=== PATIENT | male | born 2000 | race Caucasian/White ===

== ENCOUNTER 2020-02-29 08:29 | Emergency (ER) | payer OTHER ==
[~2020-02-29] VITALS: Ht 170.1 cm; Wt 63.5 kg
[~2020-02-29 08:29] MED LIST: AMOXICILLIN500 M3 PO; NAPROSYN500 MG PO
== END 2020-02-29 10:15 | disposition home or self-care (01) ==
LOC: ED 08:29
DX: S61.210A Laceration without foreign body of right index finger without damage to nail, initial encounter (principal); W45.8XXA Other foreign body or object entering through skin, initial encounter; Y93.89 Activity, other specified; Y92.89 Other specified places as the place of occurrence of the external cause; Y99.8 Other external cause status

== ENCOUNTER 2020-08-24 14:12 | Emergency (ER) | payer OTHER ==
[~2020-08-24] VITALS: Wt 59.0 kg
== END 2020-08-24 17:22 | disposition home or self-care (01) ==
LOC: ED 14:12
DX: T14.8XXA Other injury of unspecified body region, initial encounter (principal); Z79.899 Other long term (current) drug therapy; V89.2XXA Person injured in unspecified motor-vehicle accident, traffic, initial encounter; Y93.89 Activity, other specified; Y92.89 Other specified places as the place of occurrence of the external cause; Y99.8 Other external cause status

== ENCOUNTER 2021-12-13 13:32 | Emergency (ER) | payer SELFPAY ==
[~2021-12-13] VITALS: Wt 63.5 kg
[~2021-12-13 13:32] MED LIST changes: +AUGMENTIN 875-875 MG PO
== END 2021-12-13 17:06 | disposition home or self-care (01) ==
LOC: ED 13:32
DX: J02.0 Streptococcal pharyngitis (principal)